=== PATIENT | female | born 1990 | race Caucasian/White ===

== ENCOUNTER 2024-06-15 07:49 | Inpatient (IN) ==
[2024-06-15] MEDS ORDERED: LIDOCAINE 1% LOCAL 20 ML VIAL INFIL PRN (08:19)
[2024-06-15 08:57] LABS: Hematocrit (blood only) 33.6 % (37.0-47.0); Hemoglobin 10.9 g/dl (12.0-16.0); Mean Corpuscular Hemoglobin 26.1 pg (25.0-34.0); Mean Corpuscular Hgb Conc 32.4 g/dL (32.0-36.0); Mean Corpuscular Volume 80.6 fL (80.0-100.0); Mean Platelet Volume 11.8 fL (9.4-12.4); Platelet Count 192 K/uL (130-400); RDW Coefficient of Variation 15.2 % (11.5-14.5); RDW Standard Deviation 44.4 fL (36.4-46.3); Red Blood Count 4.17 M/uL (4.20-5.40); White Blood Count 7.22 K/ul (4.8-10.8)
[2024-06-15] MEDS: OXYTOCIN 30 UNITS/NSS 30 UNITS/500 ML BAG IV PRN (09:29)
[2024-06-15] MEDS: LACTATED RINGER'S 1,000 ML IV PRN (09:29)
--- NOTE | 2024-06-15 13:43 | History & Physical Report ---
Date of Service June 15, 2024 Assessment & Plan (1) Supervision of normal first : Plan: Catina is a 34-year-old G1, P0 currently at 40 weeks 2 days gestational age presents for induction of labor. 1. Fetus: Category 1 tracing 2. Labor: Cervical ripening Diehl placed and will start with oxytocin per regular protocol. Will AROM when appropriate. 3. GBS negative 4. Vitals within normal limits (2) Encounter for induction of labor: Admission and Anticipated Discharge Date Admission Date: June 15, 2024 History of Present Illness Primary Care Provider: Kathi Gupta Catina is a 34-year-old G1, P0 currently at 40 weeks 2 days gestational age presents for induction of labor. has been uncomplicated to date. Patient and her partner had a delivery plan which we reviewed. Discussed that some points on the delivery plan would not be accomplished with a induction of labor. Offered expectant management up to 41 weeks which they declined. They were both okay with the induction of labor which would require Pitocin and likely artificial rupture of membranes. Discussed placement of cervical ripening Diehl and was verbally consented. OB Labs: Blood Type O Positive 12/03/23 Antibody Screen NEGATIVE 12/03/23 Hemoglobin 11.2 g/dl (12.0-16.0) L 03/24/24 Hematocrit 34.1 % (37.0-47.0) L 03/24/24 Mean Corpuscular Volume 82.4 fL (80.0-100.0) 12/03/23 Platelet Count 303 K/uL (130-400) 12/03/23 Rubella IgG Antibody Immune (Immune) 12/03/23 Rapid Plasma Reagin Nonreactive (Nonreactive) 12/03/23 Hepatitis B Surface Antigen. NON-REACTIVE (NON-REACTIVE) 12/03/23 Hepatitis C Antibody (EIA) NON-REACTIVE (NON-REACTIVE) 12/03/23 HIV (1&2) Ag and Ab Confirmation NON-REACTIVE (NON-REACTIVE) 12/03/23 Glucose 1 Hour 50 gm Load 91 mg/dl (70-130) 03/24/24 Maternal Serum Alpha Fetoprotein 22.1 ng/mL 12/31/23 OB Optional Labs: Chlamydia trachomatis RNA Not Detected (NotDetected) 11/05/23 Neisseria gonorrhoeae RNA Not Detected (NotDetected) 11/05/23 Alpha Fetoprotein Triple Screen SEE NOTE 12/31/23 Labs Reviewed: low risk panorama--akh cf/sma neg--akh afp neg--akh gbs neg--akh Allergies Allergy/AdvReac Type Severity Reaction Status Date / Time Latex, Natural Rubber Allergy RASH, Verified 06/15/24 08:08 ITCHY, Home Medications Medication Instructions Recorded Confirmed Type 21-iron fu-folic acid 1 tab PO DAILY 10/28/23 06/15/24 History [ Complete] famotidine [Pepcid] 20 mg PO DAILY 06/09/24 06/15/24 History Patient History Medical History (Updated 06/15/24 @ 13:46 by Leobardo Gilbert MD) History of chicken pox GERD (gastroesophageal reflux disease) Migraine HX Temporomandibular joint disorder CLICKS-NO LOCKING SINCE 2011 Family History Grandfather (Maternal) Heart disease Grandfather (Paternal) Heart disease Mother Hypertension Grandmother (Maternal) Hypertension Father Hypertension Denies family history of Ovarian cancer Breast cancer Colorectal cancer Social History (Updated 06/15/24 @ 08:07 by Heide Eastman, RN) Smoking Status: Never smoker Second Hand Exposure: No; Do You Dip or Chew Tobacco: No; Hx Alcohol Use: No Hx Substance Use: No Preferred Language: Polish Communication Ability: Effective Basic Combatant Swimmer Required: No Beliefs That Will Affect Care: None marital status: marital status details: Zach Vigil( [phone] Current Living Situation: Spouse and Other Current Living Situation Comment: lives with spouse, mother and sister in law, dogs, cats-family changing lit current occupational status: employed 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 How many Children do You have: 0 Feels Safe at Home: Yes Safety Concerns: Feels Safe At This Time Assistive Devices: None Physical Exam Genitourinary: normal external appearance OB Exam Abdomen: + vertex Manual OB Exam: + cervical dilation 1 cm, + cervical effacement 50% and + station -2 OB Exam Monitor Tracing: + external FHT monitor used, + external uterine monitor used, + category I and + normal FHT variability Cervical ripening Diehl placed Results & Data Vital Signs (Past 12 Hours) Vital Signs Pulse BP 06/15/24 08:02 87 113/66 Coding Level of Care Code None Diagnoses Encounter for supervision of normal first in third trimester Z34.03 Trimester: third trimester Encounter for induction of labor Z34.90 (1) Supervision of normal first Trimester: third trimester Qualified Code(s): Z34.03 - Encounter for supervis ion of normal first , third trimester
[2024-06-15] MEDS ORDERED: diphenhydrAMINE 50 MG/ML VIAL IV PRN (15:44)
[2024-06-15] MEDS ORDERED: LIDOCAINE 2% MPF LOCAL 5 ML VIAL EPI PRN (15:44)
[2024-06-15] MEDS ORDERED: fentaNYL citrate PF 100 MCG/2 ML VIAL EPI PRN (15:44)
[2024-06-15] MEDS ORDERED: NALBUPHINE HCL 5 MG in SYRINGE 0 ML IV PRN (15:44)
[2024-06-15] MEDS ORDERED: NALOXONE HCL 0.4 MG/1 ML VIAL/CARP IV PRN (15:44)
[2024-06-15] MEDS ORDERED: ePHEDrine sulfate 50 MG/ML AMP IV PRN (15:44)
[2024-06-15] MEDS ORDERED: NALOXONE HCL 1 MG in SODIUM CHLORIDE 0.9% 1,000 ML IV PRN (15:44)
[2024-06-15] MEDS ORDERED: BUPIVACAINE 0.25% PF 30 ML VIAL EPI PRN (15:44)
[2024-06-15] MEDS ORDERED: SODIUM CHLORIDE 0.9% PF INJ 10 ML VIAL EPI PRN (15:44)
[2024-06-15] MEDS ORDERED: ROPIVACAINE 0.5% PF 5 MG/ML 20 ML VIAL EPI PRN (15:44)
--- NOTE | 2024-06-15 15:44 | Anesthesiology Consultation ---
Date of Service June 15, 2024 Assessment & Plan Chart Review Chart Review: Acceptable Risk for Surgery and Patient NOT seen in Pre Admission Testing ASA ASA2 Proposed Anesthesia Anesthesia Type: Labor Epidural Risk / Benefits Reviewed With: PT / POA / Parent / Guardian, Accepts Plan and Informed Consent Obtained History Height/Weight Height: 5 ft 5 in Weight: 79.832 kg Allergies Allergy/AdvReac Type Severity Reaction Status Date / Time Latex, Natural Rubber Allergy RASH, Verified 06/15/24 08:08 ITCHY, Medications Home Medications Medication Instructions Recorded Confirmed Last Taken 21-iron fu-folic acid 1 tab PO DAILY 10/28/23 06/15/24 06/14/24 [ Complete] famotidine [Pepcid] 20 mg PO DAILY 06/09/24 06/15/24 06/14/24 Active Medications Generic Name Dose Route Start Last Admin Trade Name Freq PRN Reason Stop Dose Admin Lactated Ringer's 1,000 mls @ 125 mls/hr 06/15/24 08:19 06/15/24 16:05 Lr IV 06/17/24 08:18 Infused .Q8H PRN Infusion L&D Protocol Protocol Oxytocin 30 units in 500 mls @ 12 mls/hr 06/15/24 09:03 06/15/24 14:00 Pitocin 30 Units/Nss IV 06/17/24 09:02 0.72 units/hr .Q24H PRN 12 mls/hr Labor Induction/Augmentation Titration Protocol 0.72 UNITS/HR Past Medical History Medical History History of chicken pox GERD (gastroesophageal reflux disease) Migraine HX Temporomandibular joint disorder CLICKS-NO LOCKING SINCE 2011 Exercise / Class Metabolic Activity II 4-5 Yardwork/Stairs/Walk up hill Past Family History Family History Grandfather (Maternal) Heart disease Grandfather (Paternal) Heart disease Mother Hypertension Grandmother (Maternal) Hypertension Father Hypertension Denies family history of Ovarian cancer Breast cancer Colorectal cancer Past Anesthesia History No Hx of Anesthesia Complications and No Family Hx of Anesthesia Complications History of PONV No Hx of PONV and No Hx of Motion Sickness Social History Smoking Status: Never smoker Do You Dip or Chew Tobacco: No Hx Alcohol Use: No alcohol intake frequency: a few times a week Hx Substance Use: No substance use type: does not use Review of Systems denies fever/cough/ colds/ chest pain/ SOB/ NAVJOT denies NAVJOT Physical Exam Vital Signs Last Vital Signs Temp 36.4 C L 06/15/24 14:48 Pulse 75 06/15/24 16:41 Resp 20 06/15/24 16:30 BP 108/71 06/15/24 16:41 Pulse Ox 97 06/15/24 16:38 ENMT Mouth: no TMJ abnormality and no dentition abnormality Thyromental Distance: > or= 3.5 Finger Breadths Mallampati Class: II Neck neck extension not limited Respiratory normal respiratory effort; no respiratory distress Auscultation: lungs clear to auscultation bilaterally Cardiovascular Rate/Rhythm: regular rate and regular rhythm Neurologic moves all extremities Psychiatric Orientation: alert and oriented x 3 Testing Laboratory Results 06/15/24 08:39
[2024-06-15] MEDS: fentaNYL citrate PF 100 MCG/2 ML VIAL ONE (16:12)
[2024-06-15] MEDS: BUPIVACAINE 0.25% PF 30 ML VIAL ONE (16:12)
[2024-06-15] MEDS: LIDOCAINE 2%/EPINEPHRINE 1:200,000 20 ML PF ONE (16:12)
[2024-06-15] MEDS: fentANYL 2 MCG/ML BUPIVacaine 0.125%-NSS 100ML BAG ONE (16:19)
[2024-06-15] MEDS: SODIUM CHLORIDE 0.9% PF INJ 10 ML VIAL ONE (16:20)
[2024-06-15] MEDS: SODIUM CHLORIDE 0.9% PF INJ 10 ML VIAL EPI STA (17:06)
[2024-06-15] MEDS: BUPIVACAINE 0.25% PF 30 ML VIAL EPI STA (17:06)
[2024-06-15] MEDS: fentaNYL citrate PF 100 MCG/2 ML VIAL EPI STA (17:06)
[2024-06-15] MEDS: LIDOCAINE 2%/EPINEPHRINE 1:200,000 20 ML PF EPI STA (17:06)
[2024-06-15] MEDS: ePHEDrine sulfate 50 MG/ML AMP ONE (18:56)
[2024-06-15] MEDS: ONDANSETRON INJ 2 MG/ML 2 ML VIAL IV PRN (18:57)
[2024-06-15] MEDS: ACETAMINOPHEN 325 MG TAB PO PRN (19:41)
[2024-06-15] MEDS: fentANYL 2 MCG/ML BUPIVacaine 0.125%-NSS 100ML BAG EPI PRN (22:09)
--- NOTE | 2024-06-15 22:39 | Labor Progress Brief Note ---
Date of Service June 15, 2024 Assessment & Plan (1) Supervision of normal first : Plan: Catina is a 34-year-old G1, P0 currently at 40 weeks 2 days gestational age presents for induction of labor. 1. Fetus: Category 1 tracing 2. Labor: Status post cervical Diehl. Continue Pitocin per regular protocol. AROM around 2:30 PM for clear. IUPC placed due to minimal progression 3. GBS negative 4. Vitals within normal limits Trimester: third trimester Qualified Code(s): Z34.03 - Encounter for supervision of normal first , third trimester (2) Encounter for induction of labor: Admission and Anticipated Discharge Date Admission Date: June 15, 2024 Physical Exam Genitourinary: Manual OB Exam: + cervical dilation (6-7), + cervical effacement 90%, + station -1 and + amniotic fluid clear OB Exam Monitor Tracing: + external FHT monitor used, + category I, + normal FHT variability and + early decelerations present; no category II, no late decelerations present and no variable decelerations Results & Data Vital Signs (Past 12 Hours) Vital Signs Temp Pulse Resp BP Pulse Ox 06/15/24 22:33 76 96 06/15/24 22:32 104/68 06/15/24 22:28 76 97 06/15/24 22:23 77 97 06/15/24 22:18 84 97 06/15/24 22:17 77 108/72 06/15/24 22:13 85 98 06/15/24 22:08 76 98 06/15/24 22:03 71 94 06/15/24 22:02 72 106/77 06/15/24 22:00 18 06/15/24 22:00 18 06/15/24 21:58 70 96 06/15/24 21:53 74 96 06/15/24 21:48 95 06/15/24 21:48 76 06/15/24 21:48 71 103/70 06/15/24 21:43 72 94 06/15/24 21:38 86 92 06/15/24 21:33 76 95 06/15/24 21:32 76 97/57 L 06/15/24 21:28 75 94 06/15/24 21:23 74 93 06/15/24 21:18 75 95 06/15/24 21:17 76 100/59 L 06/15/24 21:13 75 96 06/15/24 21:08 66 99 06/15/24 21:03 99 06/15/24 21:03 72 06/15/24 21:03 73 115/75 06/15/24 21:00 18 06/15/24 21:00 37.2 C 18 06/15/24 20:58 73 98 06/15/24 20:53 72 99 06/15/24 20:48 75 100 06/15/24 20:47 82 116/79 06/15/24 20:43 84 99 06/15/24 20:38 74 98 06/15/24 20:33 75 119/80 99 06/15/24 20:28 73 95 06/15/24 20:23 71 95 06/15/24 20:18 70 95 06/15/24 20:17 70 109/68 06/15/24 20:13 71 97 06/15/24 20:08 71 96 06/15/24 20:03 75 99 06/15/24 20:02 74 117/68 06/15/24 19:58 71 96 06/15/24 19:53 73 98 06/15/24 19:48 76 97 06/15/24 19:47 78 122/81 06/15/24 19:43 75 97 06/15/24 19:38 75 97 06/15/24 19:33 96 06/15/24 19:33 73 06/15/24 19:33 100 H 117/75 06/15/24 19:32 88 118/76 06/15/24 19:28 73 96 06/15/24 19:23 75 96 06/15/24 19:18 72 97 06/15/24 19:17 75 105/55 L 06/15/24 19:13 70 96 06/15/24 19:08 71 96 06/15/24 19:05 36.9 C 18 06/15/24 19:05 18 06/15/24 19:05 36.9 C 18 06/15/24 19:03 75 97 06/15/24 18:58 76 97 06/15/24 18:53 80 96 06/15/24 18:48 77 97 06/15/24 18:47 74 103/72 06/15/24 18:43 76 96 06/15/24 18:38 77 96 06/15/24 18:33 74 97 06/15/24 18:31 88 108/73 06/15/24 18:30 18 06/15/24 18:30 18 06/15/24 18:28 73 96 06/15/24 18:23 72 94 06/15/24 18:18 73 94 06/15/24 18:17 75 98/65 L 06/15/24 18:13 74 95 06/15/24 18:08 73 98 06/15/24 18:03 77 97 06/15/24 18:02 69 114/72 06/15/24 18:00 20 06/15/24 18:00 20 06/15/24 17:58 91 H 99 06/15/24 17:53 93 H 94 06/15/24 17:48 78 94 06/15/24 17:47 75 108/66 06/15/24 17:43 73 95 06/15/24 17:38 74 94 06/15/24 17:33 74 95 06/15/24 17:32 73 111/70 06/15/24 17:30 20 06/15/24 17:28 72 95 06/15/24 17:23 73 96 06/15/24 17:18 74 97 06/15/24 17:17 75 107/74 06/15/24 17:15 18 06/15/24 17:13 76 97 06/15/24 17:08 76 96 06/15/24 17:03 75 98 06/15/24 17:01 69 111/68 06/15/24 17:00 36.9 C 18 06/15/24 16:58 76 97 06/15/24 16:55 81 109/73 06/15/24 16:53 90 98 06/15/24 16:50 75 112/74 06/15/24 16:48 77 97 06/15/24 16:46 78 112/73 06/15/24 16:45 20 06/15/24 16:43 73 97 06/15/24 16:41 75 108/71 06/15/24 16:38 73 97 06/15/24 16:35 81 112/73 06/15/24 16:33 81 98 06/15/24 16:32 79 106/70 06/15/24 16:30 20 06/15/24 16:28 79 99 06/15/24 16:25 78 107/68 06/15/24 16:23 97 06/15/24 16:23 82 06/15/24 16:23 71 112/70 06/15/24 16:21 72 103/61 06/15/24 16:20 18 06/15/24 16:19 76 111/68 06/15/24 16:18 82 98 06/15/24 16:17 75 110/70 06/15/24 16:15 71 110/70 06/15/24 16:13 71 111/73 99 06/15/24 16:11 74 109/68 06/15/24 16:08 74 100 06/15/24 16:03 68 100 06/15/24 16:01 77 91 06/15/24 15:58 72 100 06/15/24 15:55 75 92 06/15/24 15:53 76 99 06/15/24 15:31 80 107/70 06/15/24 14:48 36.4 C L 80 16 107/65 06/15/24 13:31 82 115/81 06/15/24 12:32 75 96/58 L 06/15/24 11:32 73 85/51 L 06/15/24 11:15 36.9 C 20 Coding Level of Care Code None Diagnoses Encounter for supervision of normal first in third trimester Z34.03 Trimester: third trimester Encounter for induction of labor Z34.90
[2024-06-15] MEDS: CALCIUM CARBONATE 500 MG CHEWABLE TAB PO PRN (23:13)
[2024-06-15] MEDS ORDERED: Nursing to Pharmacy Communication SCH (23:45)
[2024-06-15] MEDS: NURSING L&D Epidural Breakthrough Pain Update ONE (23:50)
[2024-06-16] MEDS ORDERED: fentaNYL citrate PF 100 MCG/2 ML VIAL ONE (00:12)
[2024-06-16] MEDS ORDERED: LIDOCAINE 2%/EPINEPHRINE 1:200,000 20 ML PF ONE (00:12)
[2024-06-16] MEDS ORDERED: ROPIVACAINE 0.5% 5 MG/ML 30 ML VIAL ONE (00:12)
--- NOTE | 2024-06-16 01:14 | Anesthesia Procedure Note ---
Date of Service June 16, 2024 Anesthesia Epidural Re-Dose Vital Signs Temp Pulse Resp BP Pulse Ox 37.2 C 82 18 112/69 98 06/16/24 00:04 06/16/24 01:11 06/15/24 23:45 06/16/24 01:11 06/16/24 01:08 Notes Pain Intensity: 9 Dilatation (cm): 6.5 Effacement (%): 90 Called by nursing to evaluate epidural as the patient is having increased pain. The epidural was re-dosed with the following medications (all medications via epidural route) after negative aspiration of the epidural catheter for CSF/HEME. 2ml 2% lidocaine with epi, 3mL ropivacaine 0.5% and 100 mcg fetanyl via epidural After Epidural Re-Dose Mental Status: alert / awake / arousable Pain: improving with treatment Airway Patency, RR, SpO2: stable & adequate BP & HR: stable & adequate
[2024-06-16] MEDS: OXYTOCIN 30 UNITS/NSS 30 UNITS/500 ML BAG IV PRN (05:58)
[2024-06-16] MEDS ORDERED: ACETAMINOPHEN 325 MG TAB PO PRN (06:07)
[2024-06-16] MEDS ORDERED: HYDROCORTISONE ACETATE 25 MG SUPP PR PRN (06:07)
[2024-06-16] MEDS ORDERED: bisacodyL 10 MG SUPP PR PRN (06:07)
[2024-06-16] MEDS ORDERED: OXYTOCIN 30 UNITS/NSS 30 UNITS/500 ML BAG IV PRN (06:07)
--- NOTE | 2024-06-16 06:09 | Delivery Summary ---
Vaginal Delivery Summary Date of Service June 16, 2024 Vaginal Delivery Summary and 2nd Degree LAC Progressed to 10 cm dilated, 100% effaced +2 station pushed over intact perineum with epidural anesthesia and delivered a viable male with weight and Apgars pending. Had the delivered without difficulty followed by shoulders and body. was noted to be vigorous upon delivery and a 1 minute delayed cord clamping was initiated. Cord was then double clamped and cut and remained on maternal abdomen. Cord blood obtained. There was noted to be a briskly bleeding perineal laceration and the 2 areas of bleeding were ligated with a [id number] stitch. Attention was turned to deliver the placenta which delivered intact with three-vessel cord with gentle traction. On further inspection of the perineum vagina and cervix there is noted to be a se cond-degree perineal laceration which was repaired with 3-0 Vicryl in the traditional crown stitch. Needle sponge and instrument counts are correct at the completion of the case. Both mother and stable in the immediate postdelivery period. No complications noted and estimated blood loss per QBL MNP Vaginal Delivery Charge Delivery Type Details: and 2nd Degree LAC
--- NOTE | 2024-06-16 07:17 | Anesthesia Procedure Note ---
Date of Service June 16, 2024 Anesthesia Post Epidural Note Vital Signs Vital Signs: Temp Pulse Resp BP Pulse Ox 37.3 C 121 H 18 118/73 96 06/16/24 06:45 06/16/24 07:00 06/16/24 06:45 06/16/24 07:00 06/16/24 06:03 Pain Intensity Abdomen: Pain Intensity: 8 Notes Mental Status: alert / awake / arousable Nausea / Vomiting: adequately controlled Pain: adequately controlled Airway Patency, RR, SpO2: stable & adequate BP & HR: stable & adequate Hydration State: stable & adequate Neuraxial Anesthesia: was administered and sensory block is resolving Anesthetic Complications: no major complications apparent and Pt Satisfied with anesthetic care Epidural: Removed without complications and With tip intact
[2024-06-16] MEDS: PRENATAL VITAMIN 1 TAB PO SCH (08:27)
[2024-06-16] MEDS: BENZOCAINE 20% SPRY 85 APPLN/85 GM CAN EXT PRN (08:28)
[2024-06-16] MEDS: FERROUS SULFATE 325 MG TAB PO SCH (08:28)
[2024-06-16] MEDS: DOCUSATE SODIUM 100 MG CAP PO SCH (08:28)
[2024-06-16] MEDS: DIPHTHER/TETAN/PERTUS Vaccine (Tdap, Adol/Adult) 0.5mL IM ONE (09:19)
[2024-06-16] MEDS: IBUPROFEN 600 MG TAB PO PRN (11:41)
[2024-06-17 06:50] LABS: Hematocrit (blood only) 23.6 % (37.0-47.0); Hemoglobin 7.7 g/dl (12.0-16.0)
--- NOTE | 2024-06-17 07:08 | Obstetrical Progress Note ---
Date of Service June 17, 2024 Assessment & Plan (1) Encounter for assessment: visit type: exam and care immediately after delivery Qualified Code(s): Z39.0 - Encounter for care and examination of mother immediately after delivery Plan Doing well. Routine pp care. Change in hgb from 10 to 7.7 noted. Patient is currently asx and vitals stable. Day #:: 1 Subjective Ambulation: ambulating normally Voiding: no voiding problems Passing Gas:: Yes Diet Tolerance:: regular diet Lochia:: Small Feeding Type:: breast feeding Physical Exam Constitutional WD/WN, vitals as above Cardiovascular Extremities: no calf tenderness and no edema Gastrointestinal (Abdomen) soft, nt, nd, ff/nt at u Psychiatric A+Ox3, euthymic affect Results & Data Vital Signs (Past 12 Hours) Vital Signs Temp Pulse Resp BP Pulse Ox O2 Del Method 06/17/24 03:00 36.5 C 76 16 96/59 L 98 Room Air 06/16/24 23:40 36.6 C 81 16 93/57 L 98 Room Air 06/16/24 21:20 36.5 C 76 18 107/69 98 Room Air
[2024-06-17] MEDS: bisacodyL 5 MG TABEC PO SCH (21:19)
--- NOTE | 2024-06-18 08:06 | Obstetrical Progress Note ---
Date of Service June 18, 2024 Assessment & Plan (1) Encounter for assessment: PPD#2 doing well. DC home - followup 6w PP. visit type: exam and care immediately after delivery Qualified Code(s): Z39.0 - Encounter for care and examination of mother immediately after delivery Subjective Ambulation: ambulating normally Voiding: no voiding problems Diet Tolerance:: regular diet Lochia:: Moderate Review of Systems All systems reviewed & are unremarkable except as noted in HPI & below Physical Exam Constitutional WD/WN, vitals as above no acute distress Respiratory normal respiratory effort Cardiovascular Rate/Rhythm: regular rate and regular rhythm Gastrointestinal (Abdomen) Inspection/Auscultation: abdomen normal to inspection; abdomen not distended Percussion/Palpation: abdomen soft Genitourinary OB Exam Abdomen: + fundal height Fundus: + firm; not tender Results & Data Vital Signs (Past 12 Hours) Vital Signs Temp Pulse Resp BP Pulse Ox O2 Del Method 06/17/24 22:58 36.6 C 72 18 95/56 L 98 Room Air
== END 2024-06-18 11:20 | disposition home or self-care (01) | DRG 769 ==
LOC: 4S1 07:49 → 4E2 06-16 08:45